=== PATIENT | female | born 1945 | race Native Hawaiian/Other Pacific Islander ===

== ENCOUNTER 2021-05-28 12:21 | Inpatient (IN) | payer OTHER ==
[2021-05-29 09:18] LABS: PLATELET COUNT 178 K/uL (152-353)
[2021-05-29 10:06] LABS: POTASSIUM 3.7 mmol/L (3.6-5.2)
== END 2021-06-24 13:51 | disposition still patient (30) ==
LOC: PAVC 12:21
PROVIDERS: ADMIT Internal Medicine; ATTEND Internal Medicine
DX: I69.351 Hemiplegia and hemiparesis following cerebral infarction affecting right dominant side (principal); I69.320 Aphasia following cerebral infarction; R47.01 Aphasia; R48.8 Other symbolic dysfunctions; M62.81 Muscle weakness (generalized); Z74.1 Need for assistance with personal care; R26.81 Unsteadiness on feet
CPT/HCPCS: 80053; 80061; 82306; 82607; 82728; 83036; 83540; 84443; 85027; 87081

== ENCOUNTER 2021-07-25 16:57 | Inpatient (IN) | payer OTHER ==
[2021-07-25] VITALS (9 sets, daily range): BP systolic 89–101; BP diastolic 39–56; TEMP 96.8–98.4; Ht 165.1 cm; Wt 74.0 kg
[~2021-07-25] VITALS: Ht 165.1 cm; Wt 74.0 kg
[2021-07-25 17:45] LABS: POTASSIUM 3.2 mmol/L (3.6-5.2)
[2021-07-25 17:53] LABS: PLATELET COUNT 242 K/uL (152-353)
--- NOTE | 2021-07-25 21:15 | NUR ---
PT FROM ER VIA STRETCHER TO ROOM [address] HOYT WITH UTI POSSIBLE UROSEPSIS, ACUTE KIDNEY INJURY, POSSIBLE NON STEMI, HYPOKALEMIA, DEHYDRATION, DEMENTIA H/O CHF. PT AWAKE WITH NO S/S OF ACUTE DISTRESS NOTED, RESP RATE NONLABORED O2 VIA NRB MASK AT 15LPM, 18F MUSE PATENT, 22G IV INTACT TO R FA. BROUGHT TO ROOM VIA STRETCHER. PT IS RESIDENT OF [place]. 75 YR OLD FEMALE WILL MONITOR, RAILS UP, BED IN LOW POSITION, CALL LIGHT IN REACH, BED ALARM ON.
[2021-07-25] MEDS ORDERED: ASPIRIN ADULT L81 MG PO (22:59)
[2021-07-25] MEDS ORDERED: LIPITOR80 MG PO (23:00)
[2021-07-25] MEDS ORDERED: D 10001000 UNIT PO (23:01)
[2021-07-25] MEDS ORDERED: CLOP75TA2 PO (23:02)
[2021-07-25] MEDS ORDERED: LEXAPRO20 MG PO (23:02)
[2021-07-25] MEDS ORDERED: XALATAN0.005 % OPTH (23:04)
[2021-07-25] MEDS ORDERED: SPIRONOLACT25 MG PO (23:05)
[2021-07-25] MEDS ORDERED: METO25TA4 PO (23:07)
--- NOTE | 2021-07-26 01:03 | NUR ---
RESTING WITH EYES CLOSED, NO S/S OF PAIN OR DISTRESS NOTED, MUSE PATENT, IV INTACT WITH NS ONGOING AT 125(X 1 LITER FROM ER), O2 VIA NRB, WILL MONITOR CLOSELY, RAILS UP, BED IN LOW POSITION.
--- NOTE | 2021-07-26 03:00 | NUR ---
RESTING WITH EYES CLOSED, NO S/S OF PAIN OR DISTRESS NOTED, RESP RATE NONLABORED, O2 IN USE VIA NRB MASK, 22G IV INTACT TO R FA WITH NS AT 125ML/HR, 18F MUSE PATENT WITH SMALL AMONT OF TEA COLORED URINE NOTED IN TUBING NONE IN BAG(DX UROSEPSIS, DEHYDRATION), PT AROUSES SHAKES HEAD YES AND NO TO ANSWER QUESTIONS AT TIMES, REPOSITIONED IN BED TO L SIDE, FEET ELEVATED ON PILLOWS, HOB ELEVATED, WILL MONITOR, RAILS UP, BED IN LOW POSITION, CALL LIGHT IN REACH.
[2021-07-26 04:27] VITALS: BP 132/61; TEMP 97.2
--- NOTE | 2021-07-26 05:10 | NUR ---
RESTING WITH EYES CLOSED, NO S/S OF PAIN OR DISTRESS NOTED, RESP RATE NONLABORED, MUSE PATENT, IV INTACT, PULSE OX IN USE, REPOSITIONED IN BED TO SIDE WITH FEET ON PILLOW, WILL MONITOR, RAILS UP, BED IN LOW POSITIION.
[2021-07-26 05:16] LABS: PLATELET COUNT 234 K/uL (152-353)
[2021-07-26 05:28] LABS: POTASSIUM 3.6 mmol/L (3.6-5.2)
[2021-07-26 08:00] VITALS: BP 146/76; TEMP 97.5
--- NOTE | 2021-07-26 08:00 | NUR ---
PT LYING IN HF, NAD NOTED, NONLABORED BREATHING, ASKED PT IF SHE WAS OK AND IF SHE HAS ANY NEEDS PT DID NOT RESPOND VERBALLY AT THIS TIME, 22G TO THE RT FA INTACT SL, MUSE INTACT WITH MINIMAL TEA COLOR URINE NOTED IN MUSE BAG, SIDE RAILS UP X2, BED IN LOWEST POSISTION, REEDUCATED PT INFANTRY ASSAULTMAN LIGHT AND PLACED WITHIN REACH, WILL CONTINUE TO MONITOR
[2021-07-26 08:01] LABS: PLATELET COUNT 240 K/uL (152-353); POTASSIUM 3.8 mmol/L (3.6-5.2)
--- NOTE | 2021-07-26 08:19 | NUR ---
UPON RT ARRIVAL IN ROOM. PT HAD NRB PULLED OFF. PT IS SATTING 95% ON RA.
--- NOTE | 2021-07-26 08:30 | NUR ---
IN PT RM FOR MORNING ASSESSMENT, PT NOTED TO BE LYING IN HF, NONLABORED BREATHING, NO DISTRESS NOTED, PT HOLDING TELEMETRY BOX IN HAND ATTEMPTING TO PRESS ON IT, EDUCATED PT ON TELEMETRY BOX AND WHAT IT WAS USED FOR, PT CONTINUED TO TRY AND PULL CORDS AND PULSE OX, PT O2 NOTED TO BE 88-89% ON RA, APPLIED O2 NC AT 2L DUE TO PT WEARING O2 AT [facility], PT UNABLE TO FOLLOW COMMANDS WHEN ASKED TO MOVE EXTREMITIES, PT IS ALERT NOT ORIENTED AT THIS TIME, ORIENTED PT TO RM AND CALL LIGHT, PT DIDNOT VERBALIZE UNDERSTANDING, NO FURTHER NEEDS AT THIS TIME, CALL LIGHT PLACED WITHIN REACH, WILL CONTINUE TO MONITOR
[2021-07-26 09:00] VITALS: BP 146/76; TEMP 97.5
--- NOTE | 2021-07-26 09:00 | NUR ---
IN PT RM FOR MORNING MED PASS, NASAL CANNULA NOTED TO BE UP BY PT'S EYE UNDER HER GLASSES, REPOSITIONED NC AND EDUCATED PT ON LEAVING NASAL CANNULA IN NOSE, PT TOOK MEDICATIONS CRUSHED IN PUDDING WIHTOUT DIFFICULTY, 22G TO RFA INTACT WITH ROCEPHIN INFUSING WIHTOUT DIFFICULTY, MUSE INTACT WITH MINIMAL AMOUNT OF DARK YELLOW URINE NOTED IN MUSE BAG, PT HAS NO NEEDS AT THIS TIME, WILL CONTINUE TO MONITOR
[2021-07-26 12:00] VITALS: BP 143/64; TEMP 97.7
--- NOTE | 2021-07-26 12:30 | NUR ---
IN PT RM TO SET LUNCH UP, PT HAS REMOVED TELEMTRY AND PULSE OX FROM HERSELF AND HAS PLACED THEM AND HER SHEETS ON TOP OF HER BED SIDE TABLE, SHE HAS ALSO REMOVED HER NC, FOOD PLACED IN FRONT OF PT AND PT ABLE TO USE FORK AND HOLD DRINK IN HAND TO DRINK, WILL NOTIFY OF PT REMOVING EQUIPMENT, NO FURTHER NEEDS AT THIS TIME, WILL CONTINUE TO MONITOR
--- NOTE | 2021-07-26 15:45 | NUR ---
PT LYING IN HF RESTING WITH EYES CLOSED, NAD NOTED, NONLABORED BREATHING, O2 NC ON AT 2L, MUSE BAG NOTED TO HAVE APROX. 200ML TEA COLORED URINE, 22G TO RT FA INTACT SL, NO NEEDS AT THIS TIME, CALL LIGHT WITHIN REACH WILL CONTINUE TO MONITOR
[2021-07-26 16:00] VITALS: BP 126/55; TEMP 97.1
[2021-07-26 20:00] VITALS: BP 125/75; TEMP 97.5
--- NOTE | 2021-07-26 22:50 | NUR ---
AWAKE WITH NO S/S OF DISTRESS NOTED, REPS RATE NONLABORED, O2 IN USE VIA NC, MUSE PATENT, IV INTACT WITH FLUID ONGOING, HOB ELEVATED. WILL MONITOR, RAILS UP, BED IN LOW POSITION, CALL LIGHT IN REACH.
[2021-07-27] VITALS: BP 143/71; TEMP 97.5
--- NOTE | 2021-07-27 03:20 | NUR ---
PT AWAKE LAYING IN BED WITH NO S/S OF ACUTE DISTRESS OR PROBLEMS NOTED, DEPEND CLEAN, MUSE PATENT, IV INTACT TO R FA WITH NS INFUSING AT 100ML/HR, O2 IN USE VIA NC, REPOSITIONED TO R SIDE, HOB ELEVATED. PT STATES SHE IS SICK BUT WILL NOT EXPLAIN. PT NOW HAS PRODUCTIVE COUGH WITH [place] SPUTUM, RAILS UP, BED IN LOW POSITION, CALL LIGHT IN PT'S HAND.
[2021-07-27 04:00] VITALS: BP 140/47; TEMP 97.3
[2021-07-27 05:24] LABS: POTASSIUM 2.8 mmol/L (3.6-5.2)
[2021-07-27 06:05] LABS: PLATELET COUNT 244 K/uL (152-353)
[2021-07-27 08:00] VITALS: BP 153/71; TEMP 98.7
--- NOTE | 2021-07-27 08:00 | NUR ---
Pt. TALKING AT RANDOM WHEN AWAKEN. Pt. SPIT OUT FOOD WHEN GIVEN ATTEMPTING TO FEED Pt.
[2021-07-27 12:00] VITALS: BP 153/71; TEMP 98.7
[2021-07-27 16:00] VITALS: BP 167/67; TEMP 98.4
[2021-07-27 20:14] VITALS: BP 167/82; TEMP 98.5
--- NOTE | 2021-07-27 21:23 | NUR ---
PM MEDS GIVEN AT THIS TIME. PT. TOLERATED WELL. PT STILL DISORIENTED AND CONFUSED BUT DOES NOT EXPRESS NO S/S OF ACUTE DISTRESS AT THIS TIME. 18 F MUSE INTACT AND NS @ 75 INFUSING TO 22G TO RFA. WILL CONTINUE TO MONITOR.
[2021-07-28] VITALS: BP 171/76; TEMP 97.8
[2021-07-28 04:00] VITALS: BP 170/87; TEMP 98.1
[2021-07-28 05:37] LABS: PLATELET COUNT 231 K/uL (152-353)
[2021-07-28 05:51] LABS: POTASSIUM 3.1 mmol/L (3.6-5.2)
[2021-07-28 08:00] VITALS: BP 168/81; TEMP 98.4
[2021-07-28 12:00] VITALS: BP 135/63; TEMP 98.9
[2021-07-28 16:00] VITALS: BP 156/72; TEMP 99
[2021-07-28 20:25] VITALS: BP 131/80; TEMP 98.1
--- NOTE | 2021-07-28 22:47 | NUR ---
PM MEDS ATTEMPTED TO BE GIVEN TO PT AT THIS TIME. PT. PUT MEDS IN HER MOUTH AND SPIT THEM BACK OUT. BLOOD SUGAR ADDRESSED AT THIS TIME ALSO.
[2021-07-29 00:20] VITALS: BP 166/81; TEMP 97.9
[2021-07-29 04:29] VITALS: BP 179/87; TEMP 98
[2021-07-29 05:56] LABS: POTASSIUM 2.8 mmol/L (3.6-5.2)
[2021-07-29 06:08] LABS: PLATELET COUNT 239 K/uL (152-353)
[2021-07-29 08:00] VITALS: BP 146/83; TEMP 97.5
[2021-07-29 12:00] VITALS: BP 165/83; TEMP 98.1
--- NOTE | 2021-07-29 12:30 | NUR ---
SPOKE WITH DR. IRBY ABOUT PT'S PO MEDS. PT MEDS CRUSHED AND PLACED IN PUDDING. PT HELD MEDS IN HER MOUTH AND DIDN'T WANT TO SWALLOW MEDS. PT CON'T TO REFUSE PO MEDS.
[2021-07-29 16:00] VITALS: BP 172/89; TEMP 97.9
--- NOTE | 2021-07-29 18:20 | NUR ---
CALLED LAB SPOKE WITH EARLE TO CONFIRM PT'S VANC TROUGH WAS DRAWN AT 1744. EARLE REPORTS THAT IT WAS DRAWN THEY ARE FIXING TO RUN IT NOW.
--- NOTE | 2021-07-29 18:35 | NUR ---
REC'D PT'S VANC TROUGH RESULTS AT THIS TIME. 9.1. VANC STARTED.
[2021-07-29 20:00] VITALS: BP 128/65; TEMP 97.5
--- NOTE | 2021-07-29 21:15 | NUR ---
ATTEMPTED TO GIVE PO MEDS TO PT. PT REFUSED AND PUT UP BOTH ARMS. ANTIBIOTIC INFUSING AT THIS TIME. NEW 22G TO LEFT FOREARM STARTED AT THIS TIME X'S ONE ATTEMPT DUE TO INFILTRATION TO PREVIOUS IV SITE.
[2021-07-30 00:21] VITALS: BP 137/64; TEMP 97.6
[2021-07-30 04:00] VITALS: BP 154/70; TEMP 98.3
[2021-07-30 07:58] LABS: PLATELET COUNT 252 K/uL (152-353)
[2021-07-30 08:00] VITALS: BP 156/78; TEMP 97.2
[2021-07-30 08:17] LABS: POTASSIUM 3.4 mmol/L (3.6-5.2)
[2021-07-30 12:00] VITALS: BP 123/62; TEMP 97.7
--- NOTE | 2021-07-30 14:06 | NUR ---
Patient lying in bed alert; confusion noted. Attempted to give AM meds; patient spit meds out. IV site to right FA patent and intact. Insulin given per sliding scale. No signs and symptoms of pain noted. Telemetry intact. O2 at 2LPM intact via NC.
[2021-07-30 16:00] VITALS: BP 125/63; TEMP 97.9
--- NOTE | 2021-07-30 18:10 | NUR ---
PATIENT ASLEEP IN BED. NO S/S OF PAIN OR DISTRESS NOTED AT THIS TIME.
[2021-07-30 20:00] VITALS: BP 123/56; TEMP 97.5
[2021-07-31] VITALS: BP 133/54; TEMP 97.8
[2021-07-31 04:00] VITALS: BP 114/48; TEMP 98.1
[2021-07-31 04:33] LABS: POTASSIUM 3.2 mmol/L (3.6-5.2)
[2021-07-31 05:09] LABS: PLATELET COUNT 225 K/uL (152-353)
[2021-07-31 08:00] VITALS: BP 118/80; TEMP 98.6
[2021-07-31 12:00] VITALS: BP 138/60; TEMP 98.8
[2021-07-31 16:00] VITALS: BP 142/60; TEMP 98
[2021-07-31 20:00] VITALS: BP 98/37; TEMP 97.7
[2021-08-01 00:10] VITALS: BP 115/49; TEMP 98.1
[2021-08-01 04:00] VITALS: BP 139/62; TEMP 97.3
[2021-08-01 04:58] LABS: POTASSIUM 3.2 mmol/L (3.6-5.2)
[2021-08-01 05:02] LABS: PLATELET COUNT 211 K/uL (152-353)
[2021-08-01 08:00] VITALS: BP 137/56; TEMP 98.6
[2021-08-01 12:00] VITALS: BP 144/65; TEMP 98.4
[2021-08-01 16:00] VITALS: BP 133/53; TEMP 97.6
[2021-08-01 20:19] VITALS: BP 128/42; TEMP 97.6
[2021-08-02 00:18] VITALS: BP 113/46; TEMP 98
[2021-08-02 04:00] VITALS: BP 127/62; TEMP 97.2
[2021-08-02 04:56] LABS: PLATELET COUNT 221 K/uL (152-353)
[2021-08-02 08:00] VITALS: BP 145/67; TEMP 98.3
[2021-08-02 12:00] VITALS: BP 126/78; TEMP 97.4
[2021-08-02 16:00] VITALS: BP 158/79; TEMP 98.4
--- NOTE | 2021-08-02 18:40 | NUR ---
PATIENT RESTING IN BED QUIETLY. PT'S APPETITE IS VERY POOR. IV SITE TO RIGHT ARM CONVERTED TO SALINE LOCK. CONTINUOUS FLUIDS DISCONTINUED. MUSE INTACT. NO DISTRESS NOTED.
[2021-08-02 20:20] VITALS: BP 137/83; TEMP 97.5
--- NOTE | 2021-08-02 23:57 | NUR ---
PATIENT SATING 88% ON 2 LPM INCEASED O2 TO 4LPM AND PATIENT SATING 90%
[2021-08-03 00:10] VITALS: BP 144/68; TEMP 98.2
[2021-08-03 04:05] VITALS: BP 126/52; TEMP 97.5
--- NOTE | 2021-08-03 04:40 | NUR ---
PATIENT SATING 95% AND HR 78 ON THE 4 LPM
[2021-08-03 05:32] LABS: PLATELET COUNT 273 K/uL (152-353)
[2021-08-03 05:50] LABS: POTASSIUM 3.7 mmol/L (3.6-5.2)
[2021-08-03 08:00] VITALS: BP 117/66; TEMP 98
[2021-08-03 12:00] VITALS: BP 118/55; TEMP 97.9
--- NOTE | 2021-08-03 13:46 | NUR ---
PT SITTING UP IN BED IN HIGH FOWLERS. AWAKE BUT CONFUSED. PTS SPEECH CLEAR BUT ILLOGICAL. PT ASSISTED WITH MEALS BY STAFF. NO S/S OF PAIN/DISCOMFORT NOTED. PTS MUSE INTACT. IV SITE TO RFA INTACT WITH NO REDNESS NOTED BUT LEAKING AROUND SITE NOTED AND IV SITE DISCONTINUED. IV SITE TO LAC INTACT WITH NO SWELLING OR REDNESS OR LEAKING AROUND SITE NOTED.
[2021-08-03 16:00] VITALS: BP 124/46; TEMP 97.6
--- NOTE | 2021-08-03 19:08 | NUR ---
PT UP SITTING IN HIGH FOWLERS IN BED WITH EYES CLOSED. NO S/S OF PAIN/DISCOMFORT NOTED. PT CONTINUES TO BE CONFUSED AND REQUIRES ASSISTANCE WITH MEALS AND CHANGING BRIEFS R/T INCONTINENCE.
[2021-08-03 20:00] VITALS: BP 165/71; TEMP 98.3
--- NOTE | 2021-08-03 22:37 | NUR ---
Pt alert resting in bed. Noted with confusion. After starting Vancomycin pt c/o pain to IV site. No swelling or redness noted at this time but did note it was leaking at site. IV restarted in RUE with 22g. Noted with blood return and flushed without difficulty. Restarted Vancomycin at 2230.
[2021-08-04] VITALS: BP 104/56; TEMP 98.7
[2021-08-04 04:00] VITALS: BP 124/57; TEMP 98.3
[2021-08-04 05:45] LABS: PLATELET COUNT 294 K/uL (152-353)
[2021-08-04 05:59] LABS: POTASSIUM 3.2 mmol/L (3.6-5.2)
[2021-08-04 08:00] VITALS: BP 136/64; TEMP 98.6
[2021-08-04 12:00] VITALS: BP 106/37; TEMP 98.1
--- NOTE | 2021-08-04 14:36 | NUR ---
PT AWAKE AND ALERT BUT CONFUSED. PT HAS AMS. NAD NOTED. O2 VIA NC INTACT AT 4LPM. SATS ABOVE 90%. NO S/S OF PAIN/DISCOMFORT NOTED. IV SITE TO RFA LAYING ON PTS BED, AND NO BLEEDING NOTED TO SITE. NEW IV SITE OBTAINED TO RIGHT WRIST WITH A 22GA X 1 ATTEMPT. NO SWELLING OR REDNESS NOTED. PT ASSISTED WITH MEALS AND WOULD ONLY EAT ABOUT 10% OF MEALS.
[2021-08-04 16:00] VITALS: BP 125/27; TEMP 97.8
[2021-08-04 20:28] VITALS: BP 140/65; TEMP 98.8
[2021-08-05 00:22] VITALS: BP 139/47; TEMP 98.5
[2021-08-05 04:00] VITALS: BP 150/60; TEMP 98
[2021-08-05 05:15] LABS: PLATELET COUNT 258 K/uL (152-353)
[2021-08-05 05:26] LABS: POTASSIUM 4.2 mmol/L (3.6-5.2)
--- NOTE | 2021-08-05 05:33 | NUR ---
Pt rested through the night with no s/s of distress. Cont IV ABT with no s/s of adverse reaction noted. Fluids offered and encouraged. Mac cath remains in place with dark yellow urine draining to BSD. 20g SL to right wrist area without s/s of infection. Call light in easy reach. Bed alarm on due to pt attempting to get OOB at beginning of shift without calling for assist.
[2021-08-05 08:00] VITALS: BP 152/67; TEMP 98.3
[2021-08-05 12:00] VITALS: BP 159/57; TEMP 97.6
--- NOTE | 2021-08-05 12:08 | NUR ---
PER DR. HOYT, PT WILL BE DISCHARGED TODAY. PT'S WBC HAS IMPROVED ON LEVAQUIN. STILL WAITING ON BLOOD AND URINE CULTURES. WBC HAS IMPROVED ON LEVAQUIN. PT MORE ALERT; TAKING MEDS AND APPETITE HAS IMPROVED. I SPOKE WITH DEEP AT THE [facility] ABOUT MUSE CATHETER; STATES THAT MUSE IS DIRECTOR INSURANCE AND TO LEAVE IN PLACE; IT WAS PLACED ON 07/22/21 AND SCHEDULED TO BE REPLACED ON 08/20/2021. AWAITNG DISCHARGE ORDERS.
[2021-08-05] MEDS ORDERED: LEVOFLOXACIN500 MG PO (13:11)
--- NOTE | 2021-08-05 14:43 | NUR ---
DISCHARGE ORDERS RECEIVED. IV SITE TO RIGHT WRIST DISCONTINUED WITH NO ISSUES. REPORT GIVEN TO BARBARA AT THE [facility] AT 1405. PT ALERT WITH NO SIGNS OF DISTRESS AT THIS TIME. PT DISCHARGED TO [facility] VIA EMT AT 1435.
== END 2021-08-05 14:30 | DRG 871 ==
LOC: ED 16:57 → MED/SURG 20:00
PROVIDERS: Emergency Medicine; Internal Medicine Endocrinology, Diabetes & Metabolism; ADMIT Internal Medicine; ATTEND Internal Medicine
DX: A41.01 Sepsis due to Methicillin susceptible Staphylococcus aureus (principal); J18.8 Other pneumonia, unspecified organism; G92.8 Other toxic encephalopathy; N30.00 Acute cystitis without hematuria; N17.8 Other acute kidney failure; B96.1 Klebsiella pneumoniae [K. pneumoniae] as the cause of diseases classified elsewhere; F03.90 Unspecified dementia, unspecified severity, without behavioral disturbance, psychotic disturbance, mood disturbance, and anxiety; E87.6 Hypokalemia; H40.89 Other specified glaucoma; Z86.73 Personal history of transient ischemic attack (TIA), and cerebral infarction without residual deficits; I11.0 Hypertensive heart disease with heart failure; I50.9 Heart failure, unspecified; I48.91 Unspecified atrial fibrillation; E78.49 Other hyperlipidemia
CPT/HCPCS: 36415; 36416; 80048; 80053; 80202; 81000; 83735; 83880; 84484; 85027; 87040; 87077; 87086; 87088; 87185; 87186; 87205; 87635; 93005; 94640; 94664; 94760; 96360; 96365; 99284; J0696; J1815; J1956; J2185; J2405; J3370; U0003

== ENCOUNTER 2021-08-24 10:10 | Outpatient (CLI) | payer OTHER ==
[~2021-08-24 10:10] MED LIST: ASPIRIN ADULT L81 MG PO; CLOP75TA2 PO; D 10001000 UNIT PO; LEVOFLOXACIN500 MG PO; LEXAPRO20 MG PO; LIPITOR80 MG PO; METO25TA4 PO; SPIRONOLACT25 MG PO; XALATAN0.005 % OPTH
== END 2021-08-24 19:23 | disposition home or self-care (01) ==
LOC: LAB 10:10
PROVIDERS: ATTEND Internal Medicine
DX: E11.9 Type 2 diabetes mellitus without complications (principal)
CPT/HCPCS: 83036

== ENCOUNTER 2021-09-23 12:55 | Inpatient (IN) | payer OTHER | END 2021-10-24 09:09 | disposition still patient (30) | LOC: PAVC 12:55 | PROVIDERS: ADMIT Internal Medicine; ATTEND Internal Medicine ==

== ENCOUNTER 2021-10-24 09:37 | Inpatient (IN) | payer OTHER | END 2021-11-24 08:59 | disposition still patient (30) | LOC: PAVC 09:37 | PROVIDERS: ADMIT Internal Medicine; ATTEND Internal Medicine ==

== ENCOUNTER 2021-10-30 16:38 | Outpatient (CLI) | payer OTHER | END 2021-10-30 23:05 | disposition home or self-care (01) | LOC: LAB 16:38 | PROVIDERS: ATTEND Internal Medicine | DX: N39.0 Urinary tract infection, site not specified (principal) | CPT/HCPCS: 81000; 87077; 87086; 87088; 87186 ==

== ENCOUNTER 2021-11-24 13:35 | Inpatient (IN) | payer OTHER | END 2021-12-22 09:10 | disposition still patient (30) | LOC: PAVC 13:35 | PROVIDERS: ADMIT Internal Medicine; ATTEND Internal Medicine ==

== ENCOUNTER 2021-11-25 08:08 | Outpatient (CLI) | payer OTHER ==
[2021-11-25 10:16] LABS: PLATELET COUNT 185 K/uL (152-353)
[2021-11-25 10:27] LABS: POTASSIUM 4.2 mmol/L (3.6-5.2)
== END 2021-11-25 19:31 | disposition home or self-care (01) ==
LOC: LAB 08:08
PROVIDERS: ATTEND Internal Medicine
DX: E11.9 Type 2 diabetes mellitus without complications (principal); E78.49 Other hyperlipidemia
CPT/HCPCS: 80053; 80061; 83036; 85027

== ENCOUNTER 2021-12-22 14:27 | Inpatient (IN) | payer OTHER | END 2022-01-22 14:15 | disposition still patient (30) | LOC: PAVC 14:27 | PROVIDERS: ADMIT Internal Medicine; ATTEND Internal Medicine ==

== ENCOUNTER 2022-01-20 14:28 | Outpatient (CLI) | payer OTHER | END 2022-01-20 19:01 | disposition home or self-care (01) | LOC: LAB 14:28 | PROVIDERS: ATTEND Internal Medicine | DX: N89.8 Other specified noninflammatory disorders of vagina (principal) | CPT/HCPCS: 87070; 87077; 87186 ==

== ENCOUNTER 2022-01-22 15:36 | Inpatient (IN) | payer OTHER | END 2022-02-21 10:42 | disposition still patient (30) | LOC: PAVC 15:36 | PROVIDERS: ADMIT Internal Medicine; ATTEND Internal Medicine ==

== ENCOUNTER 2022-02-21 02:53 | Inpatient (IN) | payer OTHER | END 2022-03-24 10:03 | disposition still patient (30) | LOC: PAVC 02:53 | PROVIDERS: ADMIT Internal Medicine; ATTEND Internal Medicine ==

== ENCOUNTER 2022-02-22 11:48 | Outpatient (CLI) | payer OTHER | END 2022-02-22 19:00 | disposition home or self-care (01) | LOC: LAB 11:48 | PROVIDERS: ATTEND Internal Medicine | DX: E11.9 Type 2 diabetes mellitus without complications (principal) | CPT/HCPCS: 83036 ==

== ENCOUNTER 2022-03-27 13:24 | Outpatient (CLI) | payer OTHER ==
[2022-03-28] MEDS ORDERED: METF500T PO (03:57)
[2022-03-28] MEDS ORDERED: GLIM4TAB PO (03:59)
== END 2022-03-27 21:00 | disposition home or self-care (01) ==
LOC: LAB 13:24
PROVIDERS: ATTEND Internal Medicine
DX: R82.998 Other abnormal findings in urine (principal); R41.82 Altered mental status, unspecified
CPT/HCPCS: 81000; 87077; 87086; 87088; 87186

== ENCOUNTER 2022-03-27 19:17 | Inpatient (IN) | payer OTHER ==
[2022-03-27] VITALS (11 sets, daily range): BP systolic 95–128; BP diastolic 45–80; TEMP 99.1–103.2
[~2022-03-27] VITALS: Ht 165.1 cm; Wt 64.1 kg
[2022-03-27 20:48] LABS: PLATELET COUNT 237 K/uL (152-353)
[2022-03-27 20:58] LABS: POTASSIUM 4.2 mmol/L (3.6-5.2)
[2022-03-28] VITALS (11 sets, daily range): BP systolic 88–186; BP diastolic 37–80; TEMP 98.2–102.9; Ht 165.1 cm; Wt 64.1 kg
--- NOTE | 2022-03-28 02:18 | NUR ---
RECEIVED PT FROM ER VIA STRETCHER. PT IS 76 YEAR OLD FEMALE ADMITTED FOR TREATMENT OF SEPSIS/UTI/CVA AND DIABETES. POSITIONED IN BED AND PT WAS ASSESSED. PT'S SON HOLA AND HIS PRESENT. TEMP IS 101.3.PT IS DNR STATUS. PT IS RECEIVING NS AT 125 ML/HR VIA INFUSION PUMP.
--- NOTE | 2022-03-28 02:52 | NUR ---
PATIENT IS IN BED RESTING WITH EYES CLOSED. PATIENT RESPONDS TO PAINFUL STIMULATION BY SQUEEZING HER EYES AND MOANING SLIGHTLY. PATIENT HAS REDNESS NOTED UNDER BILATERAL BREASTS. PATIENT HAS A STAGE 2 PRESSURE ULCER TO BILATERAL HEELS. HEELS ARE ELEVATED WITH A PILLOW. THERE ARE SCRATCHES NOTED TO BILATERAL LOWER AND UPPER EXTRIMITIES. PATIENT HAS DISCOLORATION TO SACRAL AREA THAT BLANCHES TO TOUCH. PATIENTS HIPS ARE FLOATED BILATERALLY. PATIENTS RIGHT UPPER LOBE OF THE LUNGS IS CLEAR, RIGHT LOWER LUNG IS DIMINISHED. PATIENTS LEFT UPPER LOBE OF LUNGS IS CLEAR WITH THE LOWER LOBES DIMINISHED. PATIENTS BOWEL SOUNDS ARE SLUGGESH. PATIENT HAD A LOOSE BM UPON ARRIVAL TO FLOOR. PATIENT WAS CHANGED SOON SHE WAS MOVED TO THE BED. PATIENTS SON AND DAUGHTER IN LAW ARE AT BEDSIDE. FAMILY ENCOURAGED TO CALL IF ANY NEEDS ARISE. CALL LIGHT IS WITHIN REACH.
[2022-03-28] MEDS ORDERED: METF500T PO (03:57)
[2022-03-28] MEDS ORDERED: GLIM4TAB PO (03:59)
--- NOTE | 2022-03-28 04:33 | NUR ---
PT WITH TEMPERTURE OF 102.1. PT WAS GIVEN A 650 MG SUPPOSITORY. PT IS VERBAL AND RESPONDS TO TACTILE STIMULATION. PT HAD LARGE BROWN STOOL. PT WAS CLEANED AND REPOSITIONED IN BED. PT CONTINUES TO RECEIVE NS AT 125 ML/HR. FAMILY AT BEDSIDE. PT DNR STATUS.
[2022-03-28 05:23] LABS: POTASSIUM 3.6 mmol/L (3.6-5.2)
[2022-03-28 06:22] LABS: PLATELET COUNT 205 K/uL (152-353)
--- NOTE | 2022-03-28 07:30 | NUR ---
CLIENT LAYING IN BED, NONRESPONSIVE TO VERBAL OR TOUCH STIMULI. AGONAL BREATHING NOTED WITH PERIODS OF HICCUPS. DIMINISHED BREATH SOUNDS AUSCULATATED. CLIENT MOANS AND GRIMACE PERIODICALLY, SEE MAR FOR PAIN MEDICATION ADMINISTRATION. MUSE DRAINING AT BEDSIDE, LIGHT YELLOW URINE OBSERVED. IV SITE 22G @ LAC: PATENT, FLUSHED WITH 10ML OF SALINE FLUSH. BED LOCKED IN LOWEST POSITION WITH ALARM SET.
--- NOTE | 2022-03-28 07:39 | NUR ---
PATIENT IS LAYING IN THE SUPINE POSITION WITH HIPS FLOATING ON PILLOWS. PATIENT'S EYES ARE CLOSED AND PATIENT IS NONRESPONSIVE TO VERBAL COMMANDS OR TOUCH. CATHETER BAG IS HANGING AT BEDSIDE WITH NO URINE PRESENT. PATIENT'S BODY IS WARM TO THE TOUCH, HANDS AND FEET ARE COLD. BREATHING IS DEEP WITH AUDIBLE CRACKLES. DAUGHTER IN LAW IS AT BEDSIDE.
--- NOTE | 2022-03-28 09:10 | NUR ---
HUMAN RESOURCES OPERATIONS COORDINATOR AND CHARGE NURSE ARE IN PATIENT'S ROOM TO CHANGE BRIEF. PATIENT HAS HAD A LARGE LOOSE BOWEL MOVEMENT WITH LIGHT BROWN PASTE APPEARANCE. PATIENT WAS CHANGED AND THEN BEGAN TO SHOW TWITCHING OF THE FACE AND EYES. ONCE TWITCHING STOPPED, THE PATIENT TOOK ON A POST DICTAL APPEARANCE.
--- NOTE | 2022-03-28 17:31 | NUR ---
LATE ENTRY: 03/28/22 1307- IN THE ROOM TALKING TO SON AND DAUGHTER IN LAW.
--- NOTE | 2022-03-28 17:34 | NUR ---
LATE ENTRY 03/28/22 1605- VITALS SHOW BLOOD PRESSURE 186/80, HR-101, RR-25, 96%, TEMP 100.8 AXILLARY.
--- NOTE | 2022-03-28 17:39 | NUR ---
0800: PATIENT'S TEMP IS 102.4F AXILLARY. 0842: FOURDRINIER TENDER ADMINISTERED A TYLENOL SUPPOSITORY. PATIENT IS EXPERIENCING FREQUENT LOOSE BOWEL MOVEMENTS. 1030: TEMP WAS REASSESSED. TEMP IS 102.9F AXILLARY. FOURDRINIER TENDER RECIEVED A VERBAL ORDER FOR IV TYLENOL. 1119: IV TYLENOL WAS STARTED 1200: TEMP WAS REASSED. TEMP IS 102.4. BAGS OF ICE WERE WRAPPED IN WASHCLOTHS AND PLACED IN THE PATIENTS AXILLARY AREA, A COOL WET WASH CLOTH WAS PLACED ON PATIENT'S FOREHEAD. 1400: TEMP WAS REASSESSED. TEMP IS 101.1F
--- NOTE | 2022-03-28 17:51 | NUR ---
PATIENT IS CURRENTLY RESTING IN THE SUPINE POSITION WITH EYES CLOSED. CHEST IS RISING AND FALLING APPROPRIATELY. PATIENT REMAIN UNRESPONSIVE TO STIMULI. PATIENT'S ON AND DAUGHTER IN LAW ARE AT THE BEDSIDE.
--- NOTE | 2022-03-29 01:00 | NUR ---
THIS NURSE AND PCT CHANGED CLIENT'S BRIEF, CLEANED AND APPLIED BARRIER CREAM TO PERINEAL AREA. FLOATED HIPS TO RELIEVE PRESSURE FROM SACRAL AREA. FLOATED HEELS, UNSTAGEABLE PRESSURE INJURY NOTED TO RIGHT HEEL. CLIENT NONRESPONSIVE TO TOUCH AND VERBAL STIMULI. CLEAR URINE NOTED IN MUSE BAG.
[2022-03-29 04:00] VITALS: BP 114/53; TEMP 97.1
[2022-03-29 05:46] LABS: PLATELET COUNT 153 K/uL (152-353)
[2022-03-29 05:48] LABS: POTASSIUM 2.9 mmol/L (3.6-5.2)
--- NOTE | 2022-03-29 07:40 | NUR ---
PATIENT RESTING IN BED EYES CLOSED RESP EVEN NONLABORED REPOSTIONED OPEN EYES DOESNOT RESPOND BACK TO VOICE.NOSE SWABBED PER PROTOCOL FOR COVID PT MARYELLEN WHILE OBTAINING.MUSE CATHETER TO BEDSIDE NO URINE PRESENT AT THIS TIME.CALL LIGHT WITHIN RAEACH.CC
[2022-03-29 08:00] VITALS: BP 126/57; TEMP 97.2
--- NOTE | 2022-03-29 08:37 | NUR ---
TURNED REPOSTIONED CLEAN LARGE LOOSE BM LIGHT BROWN IN COLOR.REDNESS TO SACRAL AREA ALSO GABBIE AREA.APPLIED BARRIER CREAM.PT OPEN EYES WHILE TURNING ALSO SQUEEZED MY HAND WITH HER RIGHT HAND.MUSE CATH DRAINING LIGHT CLOUDLY URINE.CALL LIGHT WITHIN REACH.CC
--- NOTE | 2022-03-29 09:15 | NUR ---
CALLED UPDATED FAMILY ON PATIENT CONDITION SPOKE WITH GIOVANY.SHE STATED SHE WILL BE COMING INTO SEE HER IN A LITTLE WHILE.CC
--- NOTE | 2022-03-29 10:09 | NUR ---
RESTING QUEITLY WITH EYES CLOSED RESP EVEN NONLABORED O2 SATURATION 97 PERCENT ROOM AIR.CC
--- NOTE | 2022-03-29 11:29 | NUR ---
PATIENT TOOK TO MRI VIA BED WEARING MASK.CC
[2022-03-29 12:09] VITALS: BP 135/65; TEMP 98.2
--- NOTE | 2022-03-29 12:18 | NUR ---
PATIENT BACK TO ROOM VIA STRETCHER FROM MRI PLACED BACK IN BED.OXYGEN SATURATION 97 PERCENT.
[2022-03-29 16:00] VITALS: BP 129/64; TEMP 97.9
--- NOTE | 2022-03-29 16:03 | NUR ---
TURNED AND REPOSTIONED LARGE LOOSE BM LIGHT BROWN IN COLOR,HEELS FLOATED.CALL LIGHT WITHIN NREACH.FAMILY MEMBERS PRESENT AT BEDSIDE.CC
--- NOTE | 2022-03-29 19:30 | NUR ---
PATIENT RESTING EYES CLOSED, DOES OPEN EYES TO PALPABLE TOUCH. PATIENT NON-VERBAL. IVF OF NORMAL SALINE INFUSING TO LEFT AC WITHOUT SIGN OF INIFILTRATION. MUSE CATHETER TO BSC WITH CLOUDY NGUYEN URINE. TURNED AND REPOSTIONED FOR COMFORT.
[2022-03-29 19:47] VITALS: BP 147/54; TEMP 98.1
[2022-03-30 00:02] VITALS: BP 155/66; TEMP 97.2
[2022-03-30 08:00] VITALS: BP 192/90; TEMP 97.8
--- NOTE | 2022-03-30 08:00 | NUR ---
PATIENT SLEEPING, IS DIFUCULT TO AROUSE. PATIENT BARELY OPENS EYES.
[2022-03-30 08:45] LABS: PLATELET COUNT 185 K/uL (152-353)
--- NOTE | 2022-03-30 09:06 | NUR ---
CRITICAL LAB TAKEN FROM [facility] IN LAB OF 20.[address] VALERA NOTIFIED, WILL CONTINUE TO MONITOR.
[2022-03-30 11:06] VITALS: BP 111/60
--- NOTE | 2022-03-30 11:30 | NUR ---
INFORMED PER NURSE PT'S BLOOD SUGAR REMAINS ELEVATED ABOVE 200 AT THIS TIME. PT IS STILL RESPONDS TO PAINFUL STIMULI ONLY UNABLE TO HAVE ANY PO INTAKE. INFORMED DR HOYT THAT PT NOT ABLET O HAVE ANY PO INTAKE AND IVF'S OF D5NS WITH 20MEQ KCL INFUSING VIA PUMP. AWAITING FURTHER INSTRUCTIONS.
--- NOTE | 2022-03-30 13:00 | NUR ---
I CALLED DR HOYT AGAIN CONCERNING PT'S ELEVATED BLOOD SUGAR AND QUESTION OF IVF'S NEW ORDERS REC'D TO CONT D5NS WITH 20MEQ KCL AT RATE OF 50ML.HR. CONT MONITORING BLOOD SUGARS AND USE SLIDING SCALE NEEDED. INFOMRED PT'S PRIMARY NURSE
[2022-03-30 16:33] VITALS: BP 132/47; TEMP 97.2
[2022-03-30 20:00] VITALS: BP 123/63; TEMP 98.6
[2022-03-30 23:55] VITALS: BP 134/64; TEMP 97.9
[2022-03-31 03:47] VITALS: BP 154/71; TEMP 98.2
[2022-03-31 05:37] LABS: PLATELET COUNT 187 K/uL (152-353)
[2022-03-31 06:09] LABS: POTASSIUM 3.7 mmol/L (3.6-5.2)
[2022-03-31 08:05] VITALS: BP 182/83; TEMP 98.6
--- NOTE | 2022-03-31 08:21 | NUR ---
PATIENT IS RESTING. PATIENT WILL FOLLOW YOU WITH HER EYES. PATIENT TRIES TO SAY SOME WORDS, HOWEVER IT IS UNCLEAR WHAT PATIENT IS TRYING TO SAY.
--- NOTE | 2022-03-31 11:07 | NUR ---
ORAL CARE PROVIDED TO PATIENT. BARRIER CREAM APPLIED.
[2022-03-31 12:16] VITALS: BP 155/82; TEMP 98.1
--- NOTE | 2022-03-31 14:27 | NUR ---
SPEECH THERAPY RECOMMENDS THAT WE KEEP PATIENT NPO DUE TO PATIENT NOT DOING WELL WITH SWALLOWING AFTER BEDSIDE SWALLOW SCREENING.
[2022-03-31 16:00] VITALS: BP 175/79; TEMP 98.1
[2022-03-31 16:45] VITALS: BP 120/60
--- NOTE | 2022-03-31 17:20 | NUR ---
ORDERED A DOBHOFF TO BE INSERTED FOR DAILY FEEDINGS FOLLOWING SPEECH THERAPY RECOMMENDATION FOR PATIENT TO REMAIN NPO S/P SEPSIS, UTI AND SUBACUTE CVA. NOTIFIED AND DISCUSSED WITH FAMILY ABOUT ORDERS. SON STATED HE WOULD LIKE TO TALK TO . PHYSICIAN NOTIFIED AT THIS TIME.
--- NOTE | 2022-03-31 18:06 | NUR ---
SPOKE WITH SON AND DAUGHTER IN LAW AND THEY DO NOT WANT TUBE FEEDING INSERTED. FAMILY WISHES TO HAVE PATIENT BE PLACED WITH HOSPICE. WILL NOTIFY UTILIZATION IN THE MORNING REGARDING LIST OF HOSPICE AGENCYS FOR THEM TO CHOOSE.
[2022-03-31 20:00] VITALS: BP 111/56; TEMP 98.7
[2022-04-01] VITALS (7 sets, daily range): BP systolic 113–170; BP diastolic 38–83; TEMP 96.6–98.9
--- NOTE | 2022-04-01 05:56 | NUR ---
ORAL CARE GIVEN. LIPS ARE PASTY AND DRY. PT WITH AUDIBLE RATTLE. PT IS DNR STATUS.
--- NOTE | 2022-04-01 08:38 | NUR ---
PATIENT RESTING IN ROOM AT THIS TIME. PATIENT IS NOT ALERT.
[2022-04-01 10:09] LABS: PLATELET COUNT 184 K/uL (152-353)
[2022-04-01 10:30] LABS: POTASSIUM 3.7 mmol/L (3.6-5.2)
--- NOTE | 2022-04-01 10:37 | NUR ---
CRITICAL LAB FOR CHLORIDE IS 119, DR. MICHELLE NOTIFIED, WILL CONTINUE TO MONITOR
--- NOTE | 2022-04-01 13:59 | NUR ---
GABY FROM UTILIZATION REPORTED THAT THE PATIENT'S FAMILY DECIDED TO GO WITH [facility] TOMORROW.
--- NOTE | 2022-04-01 14:01 | NUR ---
Restrictive Preparation Operator spoke with patients family and they are going with [facility] and will transfer back to the [facility] tomorrow. MD, nursing and pavilion notiifed of the above.
--- NOTE | 2022-04-01 18:18 | NUR ---
PATIENT RESTING IN BED, EYES CLOSED. MUSE BAG ON A NON MOVING PART OF THE BED.
--- NOTE | 2022-04-01 22:58 | NUR ---
ORAL CARE GIVEN. PT WAS SUCTIONED ORALLY. THICK WHITE FOAMY SECRETIONS WERE REMOVED. POSITIONED PT UP IN BED AND REPOSITIONED LOWER EXTREMITIES.
--- NOTE | 2022-04-01 23:24 | NUR ---
ELEVATED BP AT 170/75. HEART RATE IS 83 BPM.
--- NOTE | 2022-04-01 23:54 | NUR ---
BP 113/76 AND HEART RATE IS 69. PT IS MORE ALERT AND OPENS EYES.
[2022-04-02] VITALS: BP 113/46; TEMP 97.9
[2022-04-02 04:00] VITALS: BP 172/76; TEMP 97.4
--- NOTE | 2022-04-02 05:22 | NUR ---
PT HAS BEEN MORE ALERT. PT WAS REPOSITIONED TO HER LEFT SIDE. BRIEFS ARE CLEAN AND DRY. PT WAS ABLE TO GRAB MY HAND AND SQUEEZE. PT ABLE TO SAY HER NAME. PCT MONTSERRAT CALLED PATIENTS FAMILY AND LET THEM KNOW THAT PATIENT IS MORE ALERT AND SPEAKING CLEARLY. ORAL CARE WAS GIVEN. HOB ELEVATED. PT WITH HX OF CVA. PT ABLE TO SQUEEZE WITH HER RIGHT HAND AND REACTS TO LEFT FOOT BEING STROKED. PT OPENING HER EYES AND DIRECTS SIGHT TO HER LEFT SIDE. BEDSIDE TABLE IN EASY REACH.SUCTION AT BEDSIDE.
[2022-04-02 08:00] VITALS: BP 169/59; TEMP 97.8
--- NOTE | 2022-04-02 09:50 | NUR ---
REPORT GIVEN TO JAYLEN HADDAD RN AT [facility]. EMS HERE TO TRANSPORT PT BACK TO [facility] AT THIS TIME.
--- NOTE | 2022-04-02 09:54 | NUR ---
Lease Out Man spoke with [facility] and let them know that the patient was on her way back to the [facility] at this time. She said that she would inform the nurse so that she could start that way.
== END 2022-04-02 09:50 | DRG 871 ==
LOC: ED 19:17 → MED/SURG 03-28 00:01
PROVIDERS: Family Medicine; ADMIT Internal Medicine; ATTEND Internal Medicine
DX: A41.89 Other specified sepsis (principal); I63.531 Cerebral infarction due to unspecified occlusion or stenosis of right posterior cerebral artery; N39.0 Urinary tract infection, site not specified; G40.89 Other seizures; B96.20 Unspecified Escherichia coli [E. coli] as the cause of diseases classified elsewhere; I95.89 Other hypotension; I48.91 Unspecified atrial fibrillation; I11.0 Hypertensive heart disease with heart failure; I50.9 Heart failure, unspecified; E87.6 Hypokalemia; I69.391 Dysphagia following cerebral infarction; R13.12 Dysphagia, oropharyngeal phase; I69.398 Other sequelae of cerebral infarction; E11.65 Type 2 diabetes mellitus with hyperglycemia
CPT/HCPCS: 36415; 51702; 80048; 80053; 81000; 83605; 85027; 87040; 87635; 94664; 94760; 96360; 96361; 96365; 96366; 96375; 99284; J0132; J0360; J0696; J1815; J1953; J2185; J2270; J2405; J3370; J3490; U0003